=== PATIENT | male | born 2005 | race Caucasian/White ===

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

== ENCOUNTER 2025-02-11 14:15 | Emergency (ER) | payer OTHER, SELFPAY ==
--- OUTSIDE RECORDS SUMMARY | 2025-02-11 14:19 | XMS REPORT | Continuity of Care Document ---
Author Name Unknown Address [address] Address [address] [facility] [address] [place] [address] Care Team Providers Care Generator Mechanic Name Role Phone L_Pena Attending Clinician Unavailable L_Pena Admitting Clinician Unavailable Payers Payer Name Policy Type Policy Number Effective Date Expirati on Date Source [place] [id number] 2016 00:00:00 Encounters Start Date/Time End Date/Time Encounter Type Admission Type Attending Clinicians Care Facility Care Department Encounter ID Source 2023-03-07 00:00:00 2023-03-07 00:00:00 Outpatient L_Pena [facility] [id number] [facility]
--- NOTE | 2025-02-11 14:36 | ER ---
Nurse's Notes [facility] Name: Mark Muñoz Age: 19 yrs Sex: Male : 2005 Arrival Date: 02/11/2025 Time: 14:15 Bed 11 Private MD: Diagnosis: Cellulitis of abdominal wall Presentation: 02/11 14:29 Chief complaint: Patient states: Abscess to lower abdomen for 2 days. Coronavirus ll1 screen: Client denies travel out of the [place] in the last 14 days. At this time, the client does not indicate any symptoms associated with coronavirus-19. Ebola Screen: Patient denies travel to an Ebola-affected area in the 21 days before illness onset. Initial Sepsis Screen: Does the patient meet any 2 criteria? No. Patient's initial sepsis screen is negative. Does the patient have a suspected source of infection? No. Patient's initial sepsis screen is negative. Risk Assessment: Do you want to hurt yourself or someone else? Patient reports no desire to harm self or others. Onset of symptoms was February 10, 2025. 14:29 Method Of Arrival: Ambulatory ll1 14:29 Acuity: LI 4 ll1 Triage Assessment: 14:28 General: Appears uncomfortable, Behavior is calm, cooperative, appropriate for age. ll1 Pain: Complains of pain in pelvis Quality of pain is described as aching. Derm: Abscess located on pelvis is dime sized, is hot to touch, is red, is raised, Reports. Historical: - Allergies: 14:28 NKDA; ll1 - Home Meds: 14:28 None [Active]; ll1 - PMHx: 14:28 None; ll1 - PSHx: 14:28 None; ll1 - Immunization history:: Adult Immunizations up to date. - Infectious Disease History:: Denies. - Social history:: Smoking status: Patient reports the use of cigarette tobacco products, smokes one-half pack cigarettes per day. - Family history:: not pertinent. - Hospitalizations: : No recent hospitalization is reported. Screenin:00 [facility] ED Fall Risk Assessment (Adult) History of falling in the last 3 months, ll1 including since admission No falls in past 3 months (0 pts) Confusion or Disorientation No (0 pts) Intoxicated or Sedated No (0 pts) Impaired Gait No (0 pts) Mobility Assist Device Used No (0 pt) Altered Elimination No (0 pt) Score/Fall Risk Level 0 - 2 = Low Risk Maintained a safe environment, Hourly rounding (assess needs \\T\\ fall precautionary measures) done. Abuse screen: Denies threats or abuse. Nutritional screening: No deficits noted. Tuberculosis screening: No symptoms or risk factors identified. Assessment: 14:40 Reassessment: About to discharge patient when he states "I messed around with this girl ll1 and she told me she has the clap." . Placed in exam room #11. Dr. Juan informed. Vital Signs: 14:29 BP 115 / 76; Pulse 82; Resp 16; Temp 98.5; Pulse Ox 100% ; Pain 5/10; ll1 14:29 Pain Scale: Adult ll1 ED Course: 14:19 Patient arrived in ED. cj3 14:21 Arm band placed on. ll1 14:22 Amol Juan MD is Attending Physician. rn 14:30 Triage completed. ll1 15:00 Patient has correct armband on for positive identification. Provided Education on: ll1 finish all prescribed antibiotics. 15:00 No provider procedures requiring assistance completed. Patient did not have IV access ll1 during this emergency room visit. Administered Medications: No medications were administered Medication: 15:00 VIS not applicable for this client. ll1 Outcome: 14:35 Discharge ordered by . rn 15:00 Discharged to home ambulatory, ll1 15:00 Condition: stable 15:00 Discharge instructions given to patient, Instructed on discharge instructions, follow up and referral plans. medication usage, Demonstrated understanding of instructions, follow-up care, medications, Prescriptions given X 2, 15:00 Patient left the ED. ll1 Signatures: Amol Juan MD MD rn Lewis, Lynsay, RN RN ll1 Hemalatha Diaz cj3 Corrections: (The following items were deleted from the chart) 14:29 14:28 Allergies: Unable to obtain; ll1 ll1
--- NOTE | 2025-02-11 14:36 | EDPHYS ---
Physician Documentation [facility] Name: Mark Muñoz Age: 19 yrs Sex: Male : 2005 Arrival Date: 02/11/2025 Time: 14:15 Bed 11 Private MD: ED Physician Amol Juan HPI: 02/11 14:32 This 19 yrs old Male presents to ER via Ambulatory with complaints of Bump on Stomach. rn 14:32 The patient presents with cellulitis of the abdomen, the patient presents with a rn swollen area of the abdomen. Onset: The symptoms/episode began/occurred 2 day(s) ago. Severity of symptoms: At their worst the symptoms were mild, in the emergency department the symptoms are unchanged. The patient has not experienced similar symptoms in the past. Patient reports red and swollen area to lower abdomen. Does not know if it was a bite or something else. No fevers or chills. Patient states came to ahead and he popped it but still hurts even after drainage.. Historical: - Allergies: 14:28 NKDA; ll1 - Home Meds: 14:28 None [Active]; ll1 - PMHx: 14:28 None; ll1 - PSHx: 14:28 None; ll1 - Immunization history:: Adult Immunizations up to date. - Infectious Disease History:: Denies. - Social history:: Smoking status: Patient reports the use of cigarette tobacco products, smokes one-half pack cigarettes per day. - Family history:: not pertinent. - Hospitalizations: : No recent hospitalization is reported. ROS: 14:32 Constitutional: Negative for fever, chills, and weight loss, Abdomen/GI: Soft, no rn distention. Exam: 14:32 Constitutional: This is a well developed, well nourished patient who is awake, alert, rn and in no acute distress. Abdomen/GI: Small 1 cm area of induration, no fluctuance in lower midline abdomen. Show surrounding erythema and warmth. Vital Signs: 14:29 BP 115 / 76; Pulse 82; Resp 16; Temp 98.5; Pulse Ox 100% ; Pain 5/10; ll1 14:29 Pain Scale: Adult ll1 MDM: 14:22 Medical Screening Exam initiated rn 14:32 Differential diagnosis: abscess, cellulitis. Data reviewed: vital signs, nurses notes, rn and as a result, I will discharge patient. Counseling: I had a detailed discussion with the patient and/or guardian regarding the historical points, exam findings, and any diagnostic results supporting the discharge/admit diagnosis, the need for outpatient follow up, to return to the emergency department if symptoms worsen or persist or if there are any questions or concerns that arise at home. Special discussion: I discussed with the patient/guardian in detail that at this point there is no indication for admission to the hospital. It is understood, however, that if the symptoms persist or worsen the patient needs to return immediately for re-evaluation. ED course: No abscess evident at this time, patient has already popped it and show cellulitis. Will discharge home with antibiotics and given return precautions. Also recommend keeping area clean and warm compresses.. Administered Medications: No medications were administered Disposition Summary: 02/11/25 14:35 Discharge Ordered Notes: Location: Home rn Problem: new rn Symptoms: are unchanged rn Condition: Stable rn Diagnosis - Cellulitis of abdominal wall rn Followup: rn - With: Private Physician - When: As needed - Reason: Recheck today's complaints, Re-evaluation by your physician Discharge Instructions: - Discharge Summary Sheet rn - Cellulitis, Adult rn Forms: - Medication Reconciliation Form rn - Antibiotic rn admission - Prescription Opioid Use rn - Patient Portal Instructions rn - Leadership Thank You Letter rn Prescriptions: - Clindamycin HCl 300 mg Oral Capsule - take 1 capsule ORAL route every 6 hours for 10 days; 40 capsule; Refills: 0, rn Product Selection Permitted - Doxycycline Monohydrate 100 mg Oral Tablet - take 1 tablet ORAL route every 12 hours for 10 days; 20 tablet; Refills: 0, rn Product Selection Permitted Signatures: Amol Juan MD MD rn Lewis, Lynsay, RN RN ll1 Corrections: (The following items were deleted from the chart) 14:29 14:28 Allergies: Unable to obtain; ll1 ll1 14:33 14:32 Constitutional: Negative for fever, chills, and weight loss, Abdomen/GI: Soft, no rn distention. Small 1 cm area of induration, no fluctuance in lower midline abdomen. Show surrounding erythema and warmth. rn
[2025-02-11 15:15] VITALS: BP 115/76; TEMP 98.5; O2SAT 100
== END 2025-02-11 15:00 | disposition home or self-care (01) ==
LOC: ER 14:15
DX: L03.311 Cellulitis of abdominal wall (principal)
CPT/HCPCS: 99283

== ENCOUNTER 2025-06-25 18:41 | Emergency (ER) | payer BC ==
--- NOTE | 2025-06-25 19:10 | EDPHYS ---
Physician Documentation [facility] Name: Mark Muñoz Age: 19 yrs Sex: Male : 2005 Arrival Date: 06/25/2025 Time: 18:41 Bed 19 Private MD: ED Physician Eduard Shah HPI: 06/25 19:32 This 19 yrs old Male presents to ER via Ambulatory with complaints of STD Exposure. kb 19:32 Pt is a year old male who presents for bumps on penis that started yesterday. concerned kb for herpes. Denies fever, dysuria, discharge from penis. Historical: - Allergies: 19:12 NKDA; ss12 - Immunization history:: Adult Immunizations unknown. - Infectious Disease History:: Denies. - Social history:: Smoking status: Patient denies any tobacco usage or history of. ROS: 19:30 Constitutional: As per HPI kb Exam: 19:30 Constitutional: This is a well developed, well nourished patient who is awake, alert, kb and in no acute distress. Head/Face: Normocephalic, atraumatic. ENT: Moist Mucous membranes Cardiovascular: Regular rate Respiratory: Respirations even and unlabored. No increased work of breathing. Talking in full sentences Skin: Warm, dry with normal turgor. Normal color. MS/ Extremity: Pulses equal, no cyanosis. Neurovascular intact. Full, normal range of motion. Neuro: Awake and alert, GCS 15, oriented to person, place, time, and situation. 19:30 : Male external genitalia: Circumcision noted. lesion, of the shaft of penis, that is painful, ulceration, of the shaft of penis is present, that is small, without appreciated drainage, Vital Signs: 19:10 BP 118 / 72; Pulse 84; Resp 16; Temp 98.1; Pulse Ox 100% on R/A; ss12 MDM: 18:49 Medical Screening Exam initiated kb 19:31 Differential diagnosis: herpes, abscess, insect bite. Data reviewed: vital signs, kb nurses notes. Historians other than the Patient: Spouse/Significant Other: significant other. Counseling: I had a detailed discussion with the patient and/or guardian regarding the historical points, exam findings, and any diagnostic results supporting the discharge/admit diagnosis, the need for outpatient follow up, a urologist, to return to the emergency department if symptoms worsen or persist or if there are any questions or concerns that arise at home. Administered Medications: No medications were administered Disposition Summary: 06/25/25 19:10 Discharge Ordered Notes: Location: Home kb Condition: Stable kb Diagnosis - Herpesviral infection of penis kb Followup: kb - With: Emergency Department - When: As needed - Reason: Worsening of condition Followup: kb - With: Private Physician - When: 2 - 3 days - Reason: Recheck today's complaints, Continuance of care, Re-evaluation by your physician Discharge Instructions: - Discharge Summary Sheet kb - Genital Herpes kb Forms: - Medication Reconciliation Form kb - Antibiotic Education kb - Prescription Opioid Use kb - Patient Portal Instructions kb - Leadership Thank You Letter kb Prescriptions: - Valtrex 1 gram Oral tablet - take 1 tablet ORAL route every 8 hours; 21 tablet; Refills: 0, Product kb Selection Permitted Signatures: Flaca Goncalves, NANDA FIGUEROA-Kiki David RN RN ss12
--- NOTE | 2025-06-25 19:25 | ER ---
Nurse's Notes [facility] Name: Mark Muñoz Age: 19 yrs Sex: Male : 2005 Arrival Date: 06/25/2025 Time: 18:41 Bed 19 Private MD: Diagnosis: Herpesviral infection of penis Presentation: 06/25 19:10 Chief complaint: Patient states: recent STD exposure and rash develop. Coronavirus ss12 screen: Client denies travel out of the [place] in the last 14 days. Ebola Screen: Patient negative for fever greater than or equal to 101.5 degrees Fahrenheit, and additional compatible Ebola Virus Disease symptoms Patient denies exposure to infectious person. Patient denies travel to an Ebola-affected area in the 21 days before illness onset. Initial Sepsis Screen: Does the patient meet any 2 criteria? No. Patient's initial sepsis screen is negative. Does the patient have a suspected source of infection? No. Patient's initial sepsis screen is negative. Risk Assessment: Do you want to hurt yourself or someone else? Patient reports no desire to harm self or others. Onset of symptoms was May 25, 2025. 19:10 Method Of Arrival: Ambulatory 12 19:10 Acuity: LI 4 ss12 Triage Assessment: 19:13 General: Appears in no apparent distress. comfortable, Behavior is calm, cooperative, ss12 quiet. Pain: Denies pain. EENT: No deficits noted. No signs and/or symptoms were reported regarding the EENT system. Neuro: No deficits noted. Level of Consciousness is awake, alert, obeys commands, Oriented to person, place, time, situation. Cardiovascular: No deficits noted. Reports None. Respiratory: No deficits noted. Airway is patent Respiratory effort is even, unlabored, Respiratory pattern is regular, symmetrical. GI: No deficits noted. No signs and/or symptoms were reported involving the gastrointestinal system. : No deficits noted. No signs and/or symptoms were reported regarding the genitourinary system. Derm: No deficits noted. No signs and/or symptoms reported regarding the dermatologic system. Musculoskeletal: No deficits noted. No signs and/or symptoms reported regarding the musculoskeletal system. Historical: - Allergies: 19:12 NKDA; ss12 - Immunization history:: Adult Immunizations unknown. - Infectious Disease History:: Denies. - Social history:: Smoking status: Patient denies any tobacco usage or history of. Screenin:14 [facility] ED Fall Risk Assessment (Adult) History of falling in the last 3 months, ss12 including since admission No falls in past 3 months (0 pts) Confusion or Disorientation No (0 pts) Intoxicated or Sedated No (0 pts) Impaired Gait No (0 pts) Mobility Assist Device Used No (0 pt) Altered Elimination No (0 pt) Score/Fall Risk Level 0 - 2 = Low Risk Oriented to surroundings, Maintained a safe environment, Educated pt \T\ family on fall prevention, incl call for assistance when getting out of bed, Assessed \T\ reinforced patient's understanding of fall precautions. Abuse screen: Denies threats or abuse. Denies injuries from another. Nutritional screening: No deficits noted. Tuberculosis screening: No symptoms or risk factors identified. Vital Signs: 19:10 BP 118 / 72; Pulse 84; Resp 16; Temp 98.1; Pulse Ox 100% on R/A; ss12 ED Course: 18:44 Patient arrived in ED. gl 18:47 Flaca Goncalves [facility]C [facility] kb 18:47 Eduard Shah MD is Attending Physician. kb 19:01 Kiki Swanson, STEPHON is Primary Nurse. ss12 19:12 Triage completed. ss12 19:15 Arm band placed on right wrist. ss12 19:15 Patient has correct armband on for positive identification. Provided Education on: plan ss12 of care. 19:15 Assist provider with pelvic exam:. ss12 19:25 Patient did not have IV access during this emergency room visit. ss12 Administered Medications: No medications were administered Medication: 19:15 VIS not applicable for this client. ss12 Outcome: 19:10 Discharge ordered by . kb 19:24 Discharged to home ambulatory, ss12 19:24 Condition: stable 19:24 Discharge instructions given to patient, family, Instructed on discharge instructions, follow up and referral plans. Demonstrated understanding of instructions, follow-up care, Prescriptions given X 1, 19:25 Patient left the ED. ss12 Signatures: Flaca Goncalves FNP-C [employer]OC[employer]-Ckb Diane Lan, Reg Reg gl Kiki Swanson, RN RN ss12
[2025-06-25 20:28] VITALS: BP 118/72; TEMP 98.1; O2SAT 100
== END 2025-06-25 19:25 | disposition home or self-care (01) ==
LOC: ER 18:41
DX: A60.01 Herpesviral infection of penis (principal)
CPT/HCPCS: 99283